=== PATIENT | male | born 1990 | race African-American/Black ===

== ENCOUNTER 2025-02-06 07:18 | Observation (INO) | payer SELFPAY ==
[2025-02-06 07:44] LABS: #Basophils 0.04 10x3/uL (0.0-0.2); #Eosinophils 0.05 10x3/uL (0.0-0.7); #Monocytes 1.31 10x3/uL (0.11-0.59); #Neutrophils 8.02 10x3/uL (1.40-6.50); %Basophils 0.3 % (0.0-1.0); %Eosinophils 0.4 % (0.0-10.0); %Lymphocytes 20.1 % (21.0-51.0); %Monocytes 11.1 % (0.0-10.0); %Neutrophils 67.8 % (42.0-75.0); Hematocrit 42.7 % (42.0-52.0); Hemoglobin 15.1 g/dL (14.0-18.0); Mean Corpuscular Hemoglobin 29.5 pg (27.0-31.0); Mean Corpuscular Volume 83.6 fL (78.0-98.0); Platelet Count 236 10x3/uL (130-400); Red Blood Cell (RBC) Count 5.11 mill/uL (4.70-6.10); White Blood Cell (WBC) Count 11.84 10x3/uL (4.8-10.8)
[2025-02-06 08:00] LABS: ALT (SGPT) 14 U/L (Less than 45); AST (SGOT) 21 U/L (11-34); Albumin 3.6 g/dL (3.1-4.5); Alkaline Phosphatase 112 U/L (40-110); Anion Gap 23 mmol/L (10-20); BUN (Urea Nitrogen) 7 mg/dL (8.9-20.6); Bilirubin, Total 0.5 mg/dL (0.3-1.2); Calc. Creatinine Clearance 0 mL/min (70-130); Calcium 10.3 mg/dL (7.8-10.44); Carbon Dioxide 20 mmol/L (22-29); Chloride 92 mmol/L (98-107); Globulin 4.7 g/dL (2.4-3.5); Glucose 324 mg/dL (70-105); Potassium 4.1 mmol/L (3.5-5.1); Sodium 131 mmol/L (136-145)
[2025-02-06 08:08] LABS: Actual Bicarbonate (HCO3v) 22.7 mEq/L (22-28); Base Excess -1.0 mEq/L (-2.0 to +3.0); Calcium, Ionized (venous) 1.15 mmol/L (1.16-1.32); Chloride (VBG) 92 mmol/L (98-106); Hematocrit-VBG 48 % (42.0-52.0); Hemoglobin (Hb) 16.4 g/dL (13.2-17.3); Potassium (VBG) 4.09 mmol/L (3.70-5.30); Sodium 132 mmol/L (133-146)
[2025-02-06] MEDS ORDERED: Aspirin Chewable 81 MG TAB ONE (08:25)
[2025-02-06] MEDS ORDERED: INSULIN REGULAR IN 0.9 % NACL 100 ML ONE (08:26)
[2025-02-06 09:50] LABS: Anion Gap 18 mmol/L (10-20); BUN (Urea Nitrogen) 7 mg/dL (8.9-20.6); Calc. Creatinine Clearance 0 mL/min (70-130); Calcium 8.9 mg/dL (7.8-10.44); Carbon Dioxide 21 mmol/L (22-29); Chloride 96 mmol/L (98-107); Glucose 280 mg/dL (70-105); Potassium 4.2 mmol/L (3.5-5.1); Sodium 131 mmol/L (136-145)
[2025-02-06] MEDS ORDERED: Acetaminophen 500 MG TAB ONE (09:56)
[2025-02-06] MEDS ORDERED: Glucagon 1 MG/ML KIT IM PRN (10:30)
[2025-02-06] MEDS ORDERED: Dextrose 50% Abboject 50 ML SYRINGE SLOW IVP PRN (10:30)
[2025-02-06 11:01] LABS: Bacteria/HPF None Seen HPF (None Seen); CAUTI Indications for Culture Pelvic or flank pain; Glucose, Urine (Dipstick) Greater than 1000 mg/dL (Negative); Leukocyte Negative Leu/uL (Negative); Protein, Urine (Dipstick) 30 mg/dL (Neg-Trace); RBC/HPF 0-3 HPF (0-3); WBC/HPF None Seen HPF (0-3)
[2025-02-06 11:02] LABS: Specific Gravity, Urine Greater than 1.050 (1.002-1.036)
[2025-02-06 11:04] LABS: Urine Culture Reflex No No
[2025-02-06] MEDS ORDERED: Azithromycin 500 MG VIAL ONE (12:10)
[2025-02-06] MEDS: Azithromycin 500 MG in Sodium Chloride 0.9% 250 ML 250 ML IVPB SCH (12:20)
[2025-02-06 12:43] LABS: Anion Gap 18 mmol/L (10-20); BUN (Urea Nitrogen) 7 mg/dL (8.9-20.6); Calc. Creatinine Clearance 0 mL/min (70-130); Calcium 9.4 mg/dL (7.8-10.44); Carbon Dioxide 22 mmol/L (22-29); Chloride 95 mmol/L (98-107); Glucose 249 mg/dL (70-105); Potassium 4.4 mmol/L (3.5-5.1); Sodium 131 mmol/L (136-145)
[2025-02-06] MEDS ORDERED: Iopamidol-370 76% 500 ML MDV (1 ML CHARGE) ONE (13:14)
[2025-02-06] MEDS ORDERED: cefTRIAXone (ROCEPHIN) 1 GM VIAL ONE (14:03)
[2025-02-06] MEDS: cefTRIAXone\\ROCEPHIN 1 GM in Sodium Chloride 0.9% 100 ML IVPB SCH (14:05)
[2025-02-06 17:42] VITALS: BMI 25.4
[2025-02-06] MEDS: FLU (Fluarix Triv) 25-26 (6MOS UP)/PF 45 MCG/0.5 ML Syringe IM ONE (17:53)
[2025-02-06] MEDS: PNEUMOC 20-VAL CONJ-DIP CRM/PF 0.5 ML SYRINGE IM ONE (17:53)
[2025-02-06 20:55] LABS: Anion Gap 15 mmol/L (10-20); BUN (Urea Nitrogen) 11 mg/dL (8.9-20.6); Calc. Creatinine Clearance 176 mL/min (70-130); Calcium 9.0 mg/dL (7.8-10.44); Carbon Dioxide 26 mmol/L (22-29); Chloride 97 mmol/L (98-107); Glucose 244 mg/dL (70-105); Potassium 4.2 mmol/L (3.5-5.1); Sodium 134 mmol/L (136-145)
[2025-02-06] MEDS: Famotidine 20 MG TAB PO SCH (21:06)
[2025-02-06] MEDS: Insulin Glargine 30 UNITS/0.3 ML VIAL SC SCH (21:06)
[2025-02-07 05:23] LABS: #Basophils 0.03 10x3/uL (0.0-0.2); #Eosinophils 0.08 10x3/uL (0.0-0.7); #Monocytes 1.24 10x3/uL (0.11-0.59); #Neutrophils 7.76 10x3/uL (1.40-6.50); %Basophils 0.3 % (0.0-1.0); %Eosinophils 0.7 % (0.0-10.0); %Lymphocytes 22.2 % (21.0-51.0); %Monocytes 10.5 % (0.0-10.0); %Neutrophils 66.0 % (42.0-75.0); Hematocrit 41.1 % (42.0-52.0); Hemoglobin 13.8 g/dL (14.0-18.0); Mean Corpuscular Hemoglobin 29.5 pg (27.0-31.0); Mean Corpuscular Volume 87.8 fL (78.0-98.0); Platelet Count 216 10x3/uL (130-400); Red Blood Cell (RBC) Count 4.68 mill/uL (4.70-6.10); White Blood Cell (WBC) Count 11.76 10x3/uL (4.8-10.8)
[2025-02-07 05:37] LABS: Anion Gap 16 mmol/L (10-20); BUN (Urea Nitrogen) 7 mg/dL (8.9-20.6); Calc. Creatinine Clearance 186 mL/min (70-130); Calcium 9.3 mg/dL (7.8-10.44); Carbon Dioxide 25 mmol/L (22-29); Chloride 98 mmol/L (98-107); Glucose 366 mg/dL (70-105); Potassium 4.1 mmol/L (3.5-5.1); Sodium 135 mmol/L (136-145)
[2025-02-07] MEDS: Enoxaparin 30 MG (0.3 mL) SYRINGE SC SCH (09:34)
[2025-02-07] MEDS ORDERED: Dextrose 50% Abboject 50 ML SYRINGE SLOW IVP PRN (12:08)
[2025-02-07] MEDS ORDERED: Glucagon 1 MG/ML KIT IM PRN (12:08)
[2025-02-07 12:58] VITALS: BMI 25.4
[2025-02-07] MEDS: Acetaminophen 325 MG TAB PO PRN (21:39)
[2025-02-07] MEDS: Insulin Glargine 30 UNITS/0.3 ML VIAL SC SCH (21:43)
[2025-02-08] MEDS: Ketorolac Tromethamine 30 MG (1 mL) VIAL IVP SCH (01:14)
[2025-02-08] MEDS: diphenhydrAMINE 25 MG CAP PO SCH (01:15)
[2025-02-08 07:33] VITALS: BP 112/72; TEMP 98.3
== END 2025-02-08 11:32 | disposition left against medical advice (07) ==
LOC: ERS 07:18 → ERHOLD 10:32 → OBS 15:45
PROVIDERS: ADMIT Family Medicine; ATTEND Internal Medicine
DX: R07.89 Other chest pain (principal); E11.65 Type 2 diabetes mellitus with hyperglycemia; E11.10 Type 2 diabetes mellitus with ketoacidosis without coma; E86.0 Dehydration; Z79.4 Long term (current) use of insulin; Z79.899 Other long term (current) drug therapy
CPT/HCPCS: 36415; 36416; 71045; 71275; 80048; 80053; 81001; 82010; 82805; 84484; 85025; 87428; 93005; 96360; 96361; 96372; 96374; 96375; 96376; G0378; J0456; J0696; J1650; J1815; J1885; J7050; Q9967

== ENCOUNTER 2025-02-08 16:26 | Emergency (ER) | payer SELFPAY ==
[2025-02-08 18:44] LABS: #Basophils 0.04 10x3/uL (0.0-0.2); #Eosinophils 0.08 10x3/uL (0.0-0.7); #Monocytes 1.18 10x3/uL (0.11-0.59); #Neutrophils 8.31 10x3/uL (1.40-6.50); %Basophils 0.3 % (0.0-1.0); %Eosinophils 0.6 % (0.0-10.0); %Lymphocytes 23.5 % (21.0-51.0); %Monocytes 9.3 % (0.0-10.0); %Neutrophils 65.7 % (42.0-75.0); Hematocrit 41.8 % (42.0-52.0); Hemoglobin 14.0 g/dL (14.0-18.0); Mean Corpuscular Hemoglobin 29.6 pg (27.0-31.0); Mean Corpuscular Volume 88.4 fL (78.0-98.0); Platelet Count 287 10x3/uL (130-400); Red Blood Cell (RBC) Count 4.73 mill/uL (4.70-6.10); White Blood Cell (WBC) Count 12.66 10x3/uL (4.8-10.8)
[2025-02-08 19:30] LABS: ALT (SGPT) 31 U/L (Less than 45); AST (SGOT) 45 U/L (11-34); Albumin 3.3 g/dL (3.1-4.5); Alkaline Phosphatase 144 U/L (40-110); Anion Gap 16 mmol/L (10-20); BUN (Urea Nitrogen) 9 mg/dL (8.9-20.6); Bilirubin, Total 0.2 mg/dL (0.3-1.2); Calc. Creatinine Clearance 0 mL/min (70-130); Calcium 10.3 mg/dL (7.8-10.44); Carbon Dioxide 27 mmol/L (22-29); Chloride 96 mmol/L (98-107); Globulin 5.0 g/dL (2.4-3.5); Glucose 250 mg/dL (70-105); Potassium 4.0 mmol/L (3.5-5.1); Sodium 135 mmol/L (136-145)
[2025-02-08 22:05] LABS: Bacteria/HPF None Seen HPF (None Seen); CAUTI Indications for Culture Pelvic or flank pain; Glucose, Urine (Dipstick) Greater than 1000 mg/dL (Negative); Leukocyte Negative Leu/uL (Negative); Protein, Urine (Dipstick) Negative (Neg-Trace); RBC/HPF None Seen HPF (0-3); Specific Gravity, Urine 1.031 (1.002-1.036); WBC/HPF None Seen HPF (0-3)
[2025-02-08 22:07] LABS: Urine Culture Reflex No No
[2025-02-08 22:09] LABS: Cocaine Metabolite Screen Negative (Negative); THC/Cannabinoid Screen Negative (Negative); Tricyclic Screen Negative (Negative)
== END 2025-02-08 22:45 | disposition home or self-care (01) ==
LOC: ERS 16:26
DX: J18.9 Pneumonia, unspecified organism (principal); E11.65 Type 2 diabetes mellitus with hyperglycemia
CPT/HCPCS: 71045; 80053; 80306; 81001; 83605; 85025; 94760; 96360; 96361